=== PATIENT | female | born 1995 ===

== ENCOUNTER 2021-08-22 06:29 | Outpatient (CLI) | payer MEDICAID ==
[~2021-08-22] VITALS: Ht 160 cm; Wt 93.4 kg
[~2021-08-22 06:29] MED LIST: PRENATAL TABLET PO
--- NOTE | 2021-08-22 06:40 | NUR ---
0640- Pt arrives on unit ambulatory with for scheduled external version. Pt into bathroom, changes into gown. 0645- Pt into bed, EFM and TOCO on, FHR tracing intermittently, this RN remains at bedside adjusting. 0700- O2 sat monitor on and tracing maternal HR. 0706- Additional band and wash cloth added to EFM and FHR tracing well. 0710- Dr Lorenzo at bedside, discusses external version. 0713- Bedside US by Dr Lorenzo, head noted to be vertex.
[2021-08-22 07:00] VITALS: BP 112/66; PULSE 73
[2021-08-22 07:42] VITALS: BP 110/67; PULSE 78
--- NOTE | 2021-08-22 07:55 | NUR ---
0742- Category I FHR tracing noted. EFM and TOCO off. Discharge paperwork given and explained. Pt denies questions. To up to change into street clothes. 0755- Pt ambulates off unit in stable condition with .
== END 2021-08-22 07:55 | disposition home or self-care (01) ==
LOC: LDRO 06:29 → LDR 06:32 → LDRO 06:32 → LDR 06:33 → LDRO 07:55 → LDR 08-24 06:32 → LDRO 08-24 06:32
DX: O32.1XX0 Maternal care for breech presentation, not applicable or unspecified (principal); Z3A.42 42 weeks gestation of pregnancy
CPT/HCPCS: OP

== ENCOUNTER 2021-09-06 18:06 | Outpatient (CLI) | payer MEDICAID ==
[~2021-09-06] VITALS: Ht 160 cm; Wt 94.5 kg
[2021-09-06 18:30] VITALS: BP 130/78; PULSE 78; TEMP 98.2
[2021-09-06 18:54] VITALS: TEMP 98.2
--- NOTE | 2021-09-06 20:50 | NUR ---
1809- 25 yo 39.6 wga presents to OB, ambulatory, accompanied by spouse. Escorted to [facility] and instructions given to pt. Pt here for DFM. She reports she noticed Saturday he was not as active as he usually is and has only felt FM 3 times today. Pt is scheduled for an induction tomorrow AM. 1818- Report rec'd from JEN Gibson. EFM and toco applied. 1824- position change to left and right side for variables. VSS. Afebrile. 1829-SVE 4/70/-3, vertex. 1834- Dr. Gerardo called. 1921- EFM adjusted. 1934- SVE 4-5/70/-3 1939- Dr. Braswell called. Orders rec'd to dc pt home and return in the AM for scheduled induction. 1944- Monitors removed for dismissal. D/W pt and spouse about being discharged and when to return to hospital, otherwise to return in the AM for induction. They both verbalize understanding. 1956- DC instructions reviewed and signed. Dc'd home, ambulatory and accompanied by spouse.
[2021-09-07] MEDS ORDERED: MOTRIN 800800 MG/TAB PO (14:47)
[2021-09-07] MEDS ORDERED: PERCOCET 325 MG1 TA2 PO (14:47)
== END 2021-09-06 19:57 | disposition home or self-care (01) ==
LOC: LDRO 18:06
DX: O36.8130 Decreased fetal movements, third trimester, not applicable or unspecified (principal); Z3A.39 39 weeks gestation of pregnancy

== ENCOUNTER 2022-01-10 21:13 | Emergency (ER) | payer MEDICAID ==
[~2022-01-10] VITALS: Ht 160 cm; Wt 81.8 kg
[~2022-01-10 21:13] MED LIST changes: +MOTRIN 800800 MG/TAB PO; +PERCOCET 325 MG1 TA2 PO
[2022-01-10 21:17] VITALS: BP 106/63; TEMP 98.5
[2022-01-10] MEDS ORDERED: CEPHALEXIN500 M1 PO (22:14)
[2022-01-10] MEDS ORDERED: PREDNISONE20 MG PO (22:14)
[2022-01-10 22:45] VITALS: PULSE 78
== END 2022-01-10 22:45 | disposition home or self-care (01) ==
LOC: COL.ER 21:13
DX: S60.561A Insect bite (nonvenomous) of right hand, initial encounter (principal); Z28.310 Unvaccinated for COVID-19; W57.XXXA Bitten or stung by nonvenomous insect and other nonvenomous arthropods, initial encounter
CPT/HCPCS: J7512